=== PATIENT | female | born 1980 | race Caucasian/White ===

== ENCOUNTER 2023-12-23 18:43 | Emergency (ER) | payer MEDICARE, OTHER, SELFPAY ==
[2023-12-23 18:45] VITALS: BP 133/81
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
== END 2023-12-23 20:30 | disposition home or self-care (01) ==
LOC: EMR 18:43
PROVIDERS: EMERGENCY PHYSICIAN Emergency Medicine; FAMILY PHYSICIAN Family Medicine
DX: M25.571 Pain in right ankle and joints of right foot (principal); W19.XXXA Unspecified fall, initial encounter; F17.210 Nicotine dependence, cigarettes, uncomplicated
CPT/HCPCS: 99283; 73610

== ENCOUNTER 2024-09-07 05:58 | Emergency (ER) | payer OTHER, SELFPAY ==
[2024-09-07 06:12] VITALS: BP 135/86
[2024-09-07] MEDS: NSS 500 IV (06:20)
[2024-09-07] MEDS: ZOFRAN 4 MG IV (06:20)
[2024-09-07] MEDS: PROTONIX IV 40 MG IV (06:22)
[2024-09-07 06:30] LABS: % Basophils 1.2 % (0-2); % Immature Granulocytes 0.4 % (0-0.5); % Lymphocytes 18.6 % (20.5-51.1); % Monocytes 2.7 % (1.7-9.3); % Neutrophils 75.1 % (42.2-75.2); Absolute Basophils 0.1 10^3/uL (0-0.2); Absolute Eosinophils 0.2 10^3/uL (0-0.7); Absolute Monocytes 0.3 10^3/uL (0.1-0.6); Absolute Neutrophils 7.9 10^3/uL (1.4-6.5); Hematocrit 42.2 % (37.0-47.0); Mean Corp Hgb Conc. 33.2 g/dL (33.0-37.0); Mean Corpuscular Volume 90.6 fL (81.0-99.0); Mean Platelet Volume 10.5 fL (7.4-10.4); Nucleated Red Blood Cells % 0 %; Platelet Count 314 10^3/uL (130-400); Red Blood Cell Count 4.66 10^6/uL (4.20-5.40); Red Cell Dist. Width 12.7 % (11.5-14.5); White Blood Cell Count 10.6 10^3/uL (4.8-10.8)
[2024-09-07] MEDS: ATIVAN 1 MG IV (06:36)
--- NOTE | 2024-09-07 06:43 | EDRN ---
this RN entered the pts room to introduce this RN's self the pt was found drinking wanter from the faucet, the provider and Minerva Hansen RN already notified the pt that it was not appropriately to be drinking water right now due to the pt being nauseous,
the pt was provided with a vomit bucket and the pt threw it on the floor and threw up on the floor, the pt is refusing this RN to place the pt on the surveillance monitor, BP cuff, or Sp02 monitor, the pt is demanding pain medication and nausea
medication, provider notified, the pt is laying in stretcher in the lowest position, side rails up x1, HOB elevated, call angel within reach, will continue to monitor the pt closely
[2024-09-07 06:45] LABS: HCG, Serum Qualitative Screen Negative
[2024-09-07 06:53] LABS: ALT (SGPT) 16 U/L (0-35); AST (SGOT) 21 U/L (14-36); Albumin 4.6 g/dl (3.5-5.0); Alkaline Phosphatase 106 U/L (38-126); Blood Urea Nitrogen 4 mg/dl (7-17); Calcium 9.8 mg/dl (8.4-10.2); Carbon Dioxide 24 mmol/L (22-30); Chloride 108 mmol/L (98-107); Glucose 142 mg/dl (70-99); Magnesium 1.9 mg/dl (1.6-2.3); Potassium 4.1 mmol/L (3.5-5.1); Sodium 142 mmol/L (135-145); Total Bilirubin 0.5 mg/dl (0.2-1.3); Total Protein 7.5 g/dl (6.3-8.2); eGFR > 60.00
--- NOTE | 2024-09-07 06:56 | EDRN ---
the pt pressed the call angel and this RN entered the pts room, the pt was found dry heaving over the side of the stretcher, the pt stated to this RN, 'I want pain medication, i want fentanyl IV and i want more nausea medication, if you can't give
me that i am leaving and going to another hospital', this RN notified Dr. Almanza
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
[2024-09-07] MEDS: COMPAZINE 10 MG IV (07:18)
--- NOTE | 2024-09-07 07:21 | EDRN ---
the pt pressed the call angel and this RN entered the pts room, the pt stated to this RN, 'I want fentanyl for my pain', this RN notified the pt that she has a fentanyl patch on her arm and notified her that per the provider Dr. Almanza, pain medication
would not be give to her at this time, this RN asked the pt how he nausea was and the pt stated, 'It is fine i want pain medication', this RN notified Dr. Almanza and pain medication will not be given per the provider, no s/s of distress, the pt refused
to allow this RN to obtain vital signs, the pt is also in her street clothes due to refusing to change into a gown, the pt is laying in stretcher in the lowest position, side rails up x1, HOB elevated, no s/s of distress, will continue to monitor
the pt closely
[2024-09-07 07:24] VITALS: BMI 26.7
--- NOTE | 2024-09-07 07:31 | EDRN ---
the pt pressed the call angel and this RN and Dr. Almanza entered the pts room, the pt stated, 'I am having some wide spread abdominal pain', Dr. Almanza is assessing the pt, no s/s of distress
[2024-09-07] MEDS: ZOFRAN ODT (ORALLY DISINTEGRATING) 4 MG PO (07:48)
--- NOTE | 2024-09-07 07:51 | EDRN ---
ODT Zofran was administered and ice chips were provided for the pt, the pt is tolerating PO intake, the pt gave this RN a phone number to come pick her up, the pt is staying at '[facility]'
[2024-09-07 08:00] VITALS: BP 126/71
--- NOTE | 2024-09-07 08:15 | EDRN ---
the pt was agreeable to this RN obtaining vital signs, no s/s of distress, no c/o pain, awaiting for the pts ride to get here
== END 2024-09-07 09:14 | disposition home or self-care (01) ==
LOC: EMR 05:58
PROVIDERS: EMERGENCY PHYSICIAN Emergency Medicine; FAMILY PHYSICIAN Family Medicine
DX: R11.2 Nausea with vomiting, unspecified (principal); R03.0 Elevated blood-pressure reading, without diagnosis of hypertension; F17.200 Nicotine dependence, unspecified, uncomplicated
CPT/HCPCS: 99284; 96374; 96375 ×3; 96361; 80053; 83735; 84703; 85025

== ENCOUNTER 2024-10-23 14:33 | Emergency (ER) | payer OTHER, SELFPAY ==
[2024-10-23 14:50] VITALS: BP 131/59
[2024-10-23 16:17] VITALS: BP 129/76
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
--- NOTE | 2024-10-23 16:41 | EDRN ---
Patient discharged from waiting room by LAYLA Pagan. Patient verbalized understanding of instructions.
== END 2024-10-23 16:44 | disposition home or self-care (01) ==
LOC: EMR 14:33
PROVIDERS: EMERGENCY PHYSICIAN Emergency Medicine; FAMILY PHYSICIAN Family Medicine
DX: M79.604 Pain in right leg (principal); R22.41 Localized swelling, mass and lump, right lower limb; J44.9 Chronic obstructive pulmonary disease, unspecified; I25.2 Old myocardial infarction; E03.9 Hypothyroidism, unspecified; F31.9 Bipolar disorder, unspecified; F43.10 Post-traumatic stress disorder, unspecified; F10.10 Alcohol abuse, uncomplicated; M21.379 Foot drop, unspecified foot; F17.200 Nicotine dependence, unspecified, uncomplicated; Z99.2 Dependence on renal dialysis
CPT/HCPCS: 99284; 93971

== ENCOUNTER 2024-11-14 11:22 | Emergency (ER) | payer OTHER, SELFPAY ==
[2024-11-14 11:23] VITALS: BP 135/89
[2024-11-14 11:49] LABS: % Basophils 1.9 % (0-2); % Eosinophils 3.5 % (0-6); % Immature Granulocytes 0.3 % (0-0.5); % Lymphocytes 34.7 % (20.5-51.1); % Monocytes 5.7 % (1.7-9.3); % Neutrophils 53.9 % (42.2-75.2); Absolute Basophils 0.1 10^3/uL (0-0.2); Absolute Eosinophils 0.2 10^3/uL (0-0.7); Absolute Lymphocytes 2.4 10^3/uL (1.2-3.4); Absolute Monocytes 0.4 10^3/uL (0.1-0.6); Absolute Neutrophils 3.7 10^3/uL (1.4-6.5); Hematocrit 39.6 % (37.0-47.0); Hemoglobin 12.7 g/dL (12.0-16.0); Mean Corp Hgb Conc. 32.1 g/dL (33.0-37.0); Mean Corpuscular Hgb 29.6 pg (27.0-31.0); Mean Corpuscular Volume 92.3 fL (81.0-99.0); Mean Platelet Volume 9.9 fL (7.4-10.4); Nucleated Red Blood Cells % 0 %; Platelet Count 311 10^3/uL (130-400); Red Blood Cell Count 4.29 10^6/uL (4.20-5.40); Red Cell Dist. Width 12.9 % (11.5-14.5); White Blood Cell Count 6.9 10^3/uL (4.8-10.8)
[2024-11-14 12:01] LABS: HCG, Serum Qualitative Screen Negative
[2024-11-14 12:05] LABS: ALT (SGPT) 17 U/L (0-35); AST (SGOT) 21 U/L (14-36); Albumin 4.3 g/dl (3.5-5.0); Alkaline Phosphatase 82 U/L (38-126); Blood Urea Nitrogen 7 mg/dl (7-17); Calcium 9.3 mg/dl (8.4-10.2); Carbon Dioxide 30 mmol/L (22-30); Chloride 101 mmol/L (98-107); Glucose 101 mg/dl (70-99); Potassium 4.7 mmol/L (3.5-5.1); Sodium 136 mmol/L (135-145); Total Bilirubin 0.6 mg/dl (0.2-1.3); Total Protein 6.9 g/dl (6.3-8.2); eGFR > 60.00
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
[2024-11-14] MEDS: TORADOL 30 MG IM (12:48)
[2024-11-14 13:33] VITALS: BP 138/82
== END 2024-11-14 13:20 | disposition home or self-care (01) ==
LOC: EMR 11:22
PROVIDERS: Emergency Medicine; EMERGENCY PHYSICIAN Emergency Medicine; FAMILY PHYSICIAN Family Medicine
DX: M54.9 Dorsalgia, unspecified (principal); R20.0 Anesthesia of skin; J44.9 Chronic obstructive pulmonary disease, unspecified; E03.9 Hypothyroidism, unspecified; F20.9 Schizophrenia, unspecified; F31.9 Bipolar disorder, unspecified; F43.10 Post-traumatic stress disorder, unspecified; F17.200 Nicotine dependence, unspecified, uncomplicated; Z99.2 Dependence on renal dialysis
CPT/HCPCS: 99283; 80053; 84703; 85025

== ENCOUNTER 2025-05-24 03:56 | Emergency (ER) | payer OTHER, SELFPAY ==
[2025-05-24 04:36] VITALS: BMI 26.2
[2025-05-24 04:41] VITALS: BP 147/75
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
[2025-05-24] MEDS: NICODERM TRANSDERMAL 21 MG TRANSDERM (08:51)
[2025-05-24 13:56] LABS: HCG, Urine Qualitative Screen Negative
[2025-05-24] MEDS: TEGRETOL 200 MG PO (14:01)
[2025-05-24] MEDS: CYMBALTA DELAYED RELEASE 60 MG PO (14:01)
[2025-05-24] MEDS: CATAPRES 0.2 MG PO (14:01)
== END 2025-05-24 19:22 ==
LOC: EMR 03:56
PROVIDERS: EMERGENCY PHYSICIAN Student in an Organized Health Care Education/Training Program
DX: Z13.39 Encounter for screening examination for other mental health and behavioral disorders (principal); Y09 Assault by unspecified means; F20.9 Schizophrenia, unspecified; F31.9 Bipolar disorder, unspecified; G90.50 Complex regional pain syndrome I, unspecified; J44.9 Chronic obstructive pulmonary disease, unspecified; F60.3 Borderline personality disorder; M54.9 Dorsalgia, unspecified; F17.200 Nicotine dependence, unspecified, uncomplicated
CPT/HCPCS: 99285; 80306; 81025

== ENCOUNTER 2025-06-25 14:10 | Emergency (ER) | payer OTHER, SELFPAY ==
[2025-06-25 14:11] VITALS: BP 136/79
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
[2025-06-25 16:33] LABS: Hematocrit 41.2 % (37.0-47.0); Hemoglobin 13.7 g/dL (12.0-16.0); Mean Corp Hgb Conc. 33.3 g/dL (33.0-37.0); Mean Corpuscular Volume 89.2 fL (81.0-99.0); Nucleated Red Blood Cells % 0 %; Platelet Count 235 10^3/uL (130-400); Red Cell Dist. Width 13.1 % (11.5-14.5)
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
[2025-06-25 16:40] LABS: HCG, Serum Qualitative Screen Negative
[2025-06-25 16:44] LABS: ALT (SGPT) 13 U/L (0-35); AST (SGOT) 17 U/L (14-36); Albumin 4.2 g/dl (3.5-5.0); Alkaline Phosphatase 85 U/L (38-126); Blood Urea Nitrogen 11 mg/dl (7-17); Calcium 9.6 mg/dl (8.4-10.2); Carbon Dioxide 27 mmol/L (22-30); Chloride 104 mmol/L (98-107); Glucose 100 mg/dl (70-99); Potassium 4.8 mmol/L (3.5-5.1); Sodium 136 mmol/L (135-145); Total Protein 7.1 g/dl (6.3-8.2); eGFR > 60.00
[2025-06-25] MEDS: NICODERM TRANSDERMAL 21 MG TRANSDERM (17:37)
[2025-06-26] MEDS: NICODERM TRANSDERMAL 21 MG TRANSDERM (09:26)
[2025-06-26 09:40] VITALS: BP 130/80
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
[2025-06-26 11:43] LABS: COVID-19 Antigen Negative (Negative)
[2025-06-26] MEDS: TEGRETOL 400 MG PO (14:52)
[2025-06-26] MEDS: CYMBALTA DELAYED RELEASE 60 MG PO (14:52)
[2025-06-26] MEDS: CATAPRES 0.2 MG PO (14:52)
== END 2025-06-26 15:00 ==
LOC: EMR 14:10
PROVIDERS: Emergency Medicine; CONSULT PHYSICIAN Psychiatry & Neurology Psychiatry; EMERGENCY PHYSICIAN Emergency Medicine
DX: F25.9 Schizoaffective disorder, unspecified (principal); F44.5 Conversion disorder with seizures or convulsions; F43.10 Post-traumatic stress disorder, unspecified; G89.4 Chronic pain syndrome; E03.9 Hypothyroidism, unspecified; F12.90 Cannabis use, unspecified, uncomplicated; F17.200 Nicotine dependence, unspecified, uncomplicated; J44.9 Chronic obstructive pulmonary disease, unspecified; Z11.52 Encounter for screening for COVID-19
CPT/HCPCS: 99285; 80053; 80306; 84703; 85025; 87811